=== PATIENT | male | born 1970 | race African-American/Black ===

== ENCOUNTER 2019-12-01 17:50 | Emergency (ER) | payer OTHER ==
[~2019-12-01] VITALS: Ht 198.1 cm; Wt 138.3 kg
[2019-12-01] MEDS ORDERED: LIDOCAINE 1% (LOCAL ANESTH.) PF 5ml SDV ID ONE (18:30)
[2019-12-01] MEDS ORDERED: TETANUS-DIPTH-ACEL PERTUSSIS 0.5ML SYR Tdap IM ONE (18:30)
[2019-12-01 18:32] VITALS: BP 127/83
[2019-12-01] MEDS ORDERED: KETOROLAC TROMETH 60MG/2ML VIAL IM ONE (18:45)
[2019-12-01] MEDS ORDERED: IBUPROFEN 800 MG TAB PO ONE (19:15)
== END 2019-12-01 19:53 | disposition home or self-care (01) ==
LOC: ER 17:50
DX: S61.011A Laceration without foreign body of right thumb without damage to nail, initial encounter (principal); W22.8XXA Striking against or struck by other objects, initial encounter; Y93.89 Activity, other specified; Y92.89 Other specified places as the place of occurrence of the external cause; Y99.8 Other external cause status
CPT/HCPCS: 12001; 90471; 90715